=== PATIENT | female | born 1950 | race Caucasian/White ===

== ENCOUNTER → 2017-10-22 | Outpatient (CLI) | payer BC | END | disposition home or self-care (01) | LOC: CVU 09:12 | PROVIDERS: ATTEND Internal Medicine Cardiovascular Disease | DX: I83.893 Varicose veins of bilateral lower extremities with other complications (principal) | CPT/HCPCS: 93970 ==

== ENCOUNTER 2017-12-07 11:24 | Day surgery (SDC) | payer BC ==
[~2017-12-07] VITALS: Ht 157.5 cm; Wt 67.3 kg
[2017-12-07 12:01] VITALS: BP 125/76
[2017-12-07] MEDS ORDERED: CITA10TA8 PO (12:08)
[2017-12-07] MEDS ORDERED: CELE200C PO (12:08)
[2017-12-07] MEDS ORDERED: SODIUM BICARBONATE 1 MEQ/ML, 50ML VIAL ONE (12:16)
[2017-12-07] MEDS ORDERED: LIDOCAINE/PF 1%-EPI 1:200K, 30 ML ONE ×2 (12:16→12:21)
[2017-12-07] MEDS ORDERED: LIDOCAINE 2%, 20ML ONE (12:30)
== END 2017-12-07 13:29 | disposition home or self-care (01) ==
LOC: CACL 11:24
PROVIDERS: ATTEND Internal Medicine Cardiovascular Disease
DX: I87.2 Venous insufficiency (chronic) (peripheral) (principal); I82.4Z2 Acute embolism and thrombosis of unspecified deep veins of left distal lower extremity; Z87.898 Personal history of other specified conditions; I10 Essential (primary) hypertension
CPT/HCPCS: 36475; C1894; J3490

== ENCOUNTER → 2017-12-09 | Outpatient (CLI) | payer BC ==
[~2017-12-09] MED LIST: CELE200C PO; CITA10TA8 PO
== END | disposition home or self-care (01) ==
LOC: CVU 10:53
PROVIDERS: ATTEND Internal Medicine Cardiovascular Disease
DX: I87.2 Venous insufficiency (chronic) (peripheral) (principal)
CPT/HCPCS: 93971